=== PATIENT | female | born 1995 | race Caucasian/White ===

== ENCOUNTER 2023-05-14 20:35 | Outpatient (REF) | payer OTHER, SELFPAY ==
[2023-05-21 14:09] LABS: Age Gdln ACOG Testing Note (.); IGP, rfx Aptima HPV ASCU Note (.)
== END 2023-05-14 20:36 | disposition home or self-care (01) ==
LOC: LAB 20:35
PROVIDERS: Visit Provider Obstetrics & Gynecology
DX: Z01.419 Encounter for gynecological examination (general) (routine) without abnormal findings (principal)
CPT/HCPCS: G0145

== ENCOUNTER 2023-05-19 14:25 | Outpatient (OUT) | payer OTHER, SELFPAY ==
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
== END 2023-05-19 14:26 | disposition home or self-care (01) ==
LOC: PST 14:26
PROVIDERS: Visit Provider Obstetrics & Gynecology
DX: Z01.818 Encounter for other preprocedural examination (principal); N94.10 Unspecified dyspareunia; N92.1 Excessive and frequent menstruation with irregular cycle
CPT/HCPCS: G0463

== ENCOUNTER 2023-06-26 08:08 | Day surgery (SDC) | payer OTHER, SELFPAY ==
--- NOTE | 2023-06-23 14:09 | PC.NURSE ---
Attempted to do pre admission review of health history at 1405 no answer.
[2023-06-26] VITALS (8 sets, daily range): BP systolic 95–119; BP diastolic 56–96; PULSE 71–91; RESP 10–18; TEMP 36.1–36.3; O2SAT 96–100; BMI 36.3
[2023-06-26 08:47] LABS: Basophils Absolute Auto 0.1 10^3/uL (0.0-0.1); Basophils Percent Auto 1.2 % (0.2-2.0); Eosinophils Absolute Auto 0.4 10^3/uL (0.0-0.7); Eosinophils Percent Auto 4.1 % (0.9-7.0); Hematocrit 40.6 % (36.0-48.0); Hemoglobin 13.9 g/dL (12.0-16.0); Immature Granulocytes Abs Auto 0.02 10^3/uL (0.00-0.03); Immature Granulocytes Pct Auto 0.2 % (0.0-0.5); Lymphocytes Absolute Auto 3.8 10^3/uL (1.2-3.8); Mean Corpuscular HGB Conc 34.2 g/dL (29.9-35.2); Mean Corpuscular Hemoglobin 30.5 pg (26.7-34.0); Mean Platelet Volume 8.5 fL (9.5-13.5); Monocytes Absolute Auto 0.6 10^3/uL (0.3-0.8); Monocytes Percent Auto 6.7 % (1.7-12.0); Neutrophils Absolute Auto 3.7 10^3/uL (1.4-6.5); Neutrophils Percent Auto 42.8 % (43.0-75.0); Platelet Count 386 10^3/uL (150-450); Red Blood Count 4.56 10^6/uL (4.20-5.40); Red Cell Distribution Width 12.3 % (11.0-15.0); White Blood Count 8.5 10^3/uL (4.0-11.0)
[2023-06-26] MEDS: LACTATED RINGER'S SOLUTION 1,000 ML 50 ML IV (08:51)
[2023-06-26 09:04] LABS: HCG Quantitative <1 mIU/mL
--- NOTE | 2023-06-26 11:34 | P.ON_ITS ---
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 She was also placed in the dorsal lithotomy position. A weighted speculum was placed in the patient?s vagina. The anterior lip of the cervix was identified and grasped with a single tooth tenaculum. The patient?s uterus was then sounded roughly to [? 9] cm. The patient was then gently dilated using Hegar dilators. The hysteroscope was passed through the patient?s cervix into the uterus. Both ostia were identified. Normal appearing endometrium. No gross evidence of polyps, fibroids or malignancy. The hysteroscope was then removed from the patient's uterus.? At that point, gentle curettage was performed until a gritty texture was noted. The endometrial curettings were sent out to pathology.? The single tooth tenaculum was then removed from the patient's anterior lip of the cervix where excellent hemostasis was noted. A sponge stick was placed into the patient's vagina. Attention was turned to the patient's abdomen, where a small umbilical incision was made. The fascia was tented using Amparo clamps and the fascia was entered sharply. Confirmation of intraabdominal placement of the 10 mm port was confirmed under direct visualization using a laparoscope. The patient's abdomen was then insufflated using CO2 gas with approximately 4 liters. A second port was placed left laterally, this was done under direct visualization with a 5 mm port. Survey of the patient's abdomen demonstrated normal liver and gallbladder. Survey of the patient's pelvic anatomy demonstrated normal appearing rt and lt ovary and tubes as well as normal appearing uterus. No endometrial implants could be noted, no evidence of any pelvic disease was seen, normal appearing pelvic cavity. All instruments were removed from the patient's abdomen. The patient's abdomen was deinsufflated of CO2 gas. The patient tolerated the procedure well. Sponge stick was removed from the patient's vagina. The patient's infraumbilical fascia was closed using #0 Vicryl on a GI needle. The patient's skin was closed laterally and infraumbilically using 4-0 Vicryl. The patient tolerated the procedure well. Sponge, lap and needle counts were correct x 2. The patient was taken to Recovery Room in stable condition.Clips from prior surgery noted adhered to bladder, the clips were grasped and gently removed Anesthesia: NAHID Surgeon: Charles Johnson Curing Oven Attendant: Marva Patricia Estimated blood loss (mL): 5 Pathology: other (endometrial currettings) Condition: stable Disposition: PACU
--- NOTE | 2023-06-26 12:46 | PC.NURSE ---
peripad changed for small amount bleeding
--- NOTE | 2023-06-26 12:47 | PC.NURSE ---
Up to bathroom and voids without difficulty pink tinged clear urine
== END 2023-06-26 13:00 | disposition home or self-care (01) ==
PROVIDERS: Visit Provider Obstetrics & Gynecology
PROC: (CPT 840; principal; 2023-06-26 10:00)
DX: N94.6 Dysmenorrhea, unspecified (principal); N92.1 Excessive and frequent menstruation with irregular cycle; R10.2 Pelvic and perineal pain; N93.9 Abnormal uterine and vaginal bleeding, unspecified; F41.8 Other specified anxiety disorders; I67.1 Cerebral aneurysm, nonruptured; Z87.891 Personal history of nicotine dependence; Z98.51 Tubal ligation status; N80.329 Endometriosis of the posterior cul-de-sac, unspecified depth; N94.89 Other specified conditions associated with female genital organs and menstrual cycle
CPT/HCPCS: 49320; 58558; 36415; 84702; 85025; 88305; J2704

== ENCOUNTER 2023-07-21 14:19 | Outpatient (OUT) | payer OTHER, SELFPAY ==
[2023-07-21 15:03] LABS: Basophils Absolute Auto 0.1 10^3/uL (0.0-0.1); Basophils Percent Auto 1.4 % (0.2-2.0); Eosinophils Absolute Auto 0.3 10^3/uL (0.0-0.7); Eosinophils Percent Auto 3.2 % (0.9-7.0); Hemoglobin 13.5 g/dL (12.0-16.0); Immature Granulocytes Abs Auto 0.03 10^3/uL (0.00-0.03); Immature Granulocytes Pct Auto 0.4 % (0.0-0.5); Lymphocytes Absolute Auto 3.3 10^3/uL (1.2-3.8); Lymphocytes Percent Auto 38.1 % (20.5-60.0); Mean Corpuscular HGB Conc 34.6 g/dL (29.9-35.2); Mean Corpuscular Hemoglobin 30.8 pg (26.7-34.0); Mean Platelet Volume 8.6 fL (9.5-13.5); Monocytes Absolute Auto 0.5 10^3/uL (0.3-0.8); Monocytes Percent Auto 5.7 % (1.7-12.0); Neutrophils Absolute Auto 4.4 10^3/uL (1.4-6.5); Neutrophils Percent Auto 51.2 % (43.0-75.0); Platelet Count 419 10^3/uL (150-450); Red Blood Count 4.38 10^6/uL (4.20-5.40); Red Cell Distribution Width 12.9 % (11.0-15.0); White Blood Count 8.5 10^3/uL (4.0-11.0)
[2023-07-21 15:10] LABS: INR 0.95; Partial Thromboplastin Time 27.7 sec (22.3-36.2); Prothrombin Time 10.1 sec (9.0-11.6)
[2023-07-21 15:11] LABS: Anion Gap 12.4; Carbon Dioxide 26.5 mmol/L (21.0-32.0); Chloride 104 mmol/L (98-107); Estimated GFR (African America >60 (>=60); Estimated GFR (Non-African Ame >60 (>=60); Glucose 96 mg/dL (74-106); Potassium 3.9 mmol/L (3.5-5.1); Sodium 139 mmol/L (136-145)
== END 2023-07-21 14:20 | disposition home or self-care (01) ==
LOC: PST 14:20
PROVIDERS: Visit Provider Obstetrics & Gynecology
DX: Z01.812 Encounter for preprocedural laboratory examination (principal); N94.6 Dysmenorrhea, unspecified; R10.2 Pelvic and perineal pain; N92.0 Excessive and frequent menstruation with regular cycle
CPT/HCPCS: 80048; 85025; 85610; 85730; 86850; 86900; 86901

== ENCOUNTER → 2023-07-23 09:59 | Day surgery (SDC) | payer OTHER, SELFPAY ==
[2023-07-21 14:45] VITALS: BP 112/73; PULSE 84; RESP 20; TEMP 36.4; O2SAT 97; BMI 38.2
[2023-07-23 10:47] LABS: HCG Quantitative <1 mIU/mL
== END ==
PROVIDERS: Visit Provider Obstetrics & Gynecology
PROC: (CPT 58570; principal; 2023-07-23 11:30)
DX: N94.10 Unspecified dyspareunia (principal); Z53.8 Procedure and treatment not carried out for other reasons; R10.2 Pelvic and perineal pain; N92.0 Excessive and frequent menstruation with regular cycle; N94.6 Dysmenorrhea, unspecified
CPT/HCPCS: 58570; 36415; 84702

== ENCOUNTER 2023-09-08 07:50 | Outpatient (OUT) | payer OTHER, SELFPAY ==
--- NOTE | 2023-09-08 08:36 | PM.PRESUREVA ---
History of Present Illness History of Present Illness Chief complaint: menorrhagia, pelvic pain, dyspareunia Narrative: Patient presents for preadmission testing. The patient reports heavy painful menstrual periods. She was originally scheduled for hysterectomy in July, however she did not understand NPOinstructions and ate breakfast, so her procedure was canceled. She denies any changes in her health history. Review of Systems ROS Narrative REVIEW OF SYSTEMS: Negative except as stated in HPI, ten or more systems reviewed. Constitutional: No fever , chills, weakness ENT: No sore throat or epistaxis Cardiovascular: No edema, chest pain, palpitations, or activity intolerance Respiratory: No shortness of breath, cough, or wheezing Musculoskeletal: No joint pain or swelling Genitourinary: No dysuria or hematuria Neurological: No numbness, tingling, weakness, or headache Psychiatric: No mood changes PFSH [facility] Medical History (Updated 09/08/23 @ 08:38 by Cait Cardozo NP) Pelvic pain ?R10.2 - Pelvic and perineal pain (ICD-10) Nausea ?R11.0 - Nausea (ICD-10) Brain aneurysm ?I67.1 - Cerebral aneurysm, nonruptured (ICD-10) Vertigo ?R42 - Dizziness and giddiness (ICD-10) Depression ?F32.A - Depression, unspecified (ICD-10) Anxiety ?F41.9 - Anxiety disorder, unspecified (ICD-10) COVID-19 ?U07.1 - COVID-19 (ICD-10) Migraine ?G43.909 - Migraine, unspecified, not intractable, without status migrainosus (ICD-10) Seizures ?R56.9 - Unspecified convulsions (ICD-10) Dyspareunia Menorrhagia ?N92.0 - Excessive and frequent menstruation with regular cycle (ICD-10) Dysmenorrhea ?N94.6 - Dysmenorrhea, unspecified (ICD-10) Surgical History (Updated 05/19/23 @ 14:46 by Cait Cardozo NP) History of appendectomy ?Z90.49 - Acquired absence of other specified parts of digestive tract (ICD-10) History of section ?Z98.891 - History of uterine scar from previous surgery (ICD-10) History of section ?Z98.891 - History of uterine scar from previous surgery (ICD-10) History of section ?Z98.891 - History of uterine scar from previous surgery (ICD-10) History of hernia repair ?Z98.890 - Other specified postprocedural states (ICD-10) ?Z87.19 - Personal history of other diseases of the digestive system (ICD-10) History of bilateral salpingectomy ?Z90.79 - Acquired absence of other genital organ(s) (ICD-10) Family History (Updated 05/19/23 @ 14:46 by Cait Cardozo NP) Other Family history of diabetes mellitus Social History (Updated 05/19/23 @ 14:40 by Cait Cardozo NP) Within the past year, how often did you have a drink containing alcohol: never Score interpretation: A score less than 3 is consistent with normal alcohol consumption. Smoking status: Former smoker Non-prescribed substance use: denies use Highest level of school completed/degree received: high school graduate Meds Home Medications and Allergies Home Medications Medication Instructions Recorded Confirmed Type bupropion HCl 150 mg 24 hr tablet, 150 mg PO QDAY 05/19/23 09/08/23 History extended release citalopram 40 mg tablet 40 mg PO QPM 05/19/23 09/08/23 History meclizine 25 mg tablet 25 mg PO TID PRN dizziness 05/19/23 09/08/23 History Allergies Allergy/AdvReac Type Severity Reaction Status Date / Time nickel Allergy Rash Verified 09/08/23 08:22 Exam Narrative Exam Narrative: Constitutional: Awake, alert, comfortable, well-appearing, Poorly groomed, nontoxic, interactive, vital signs as charted Head: Normocephalic, atraumatic Neck: Supple, normal appearance, normal range of motion, no meningeal signs, no lymphadenopathy Respiratory: No respiratory distress, breath sounds clear Cardiovascular: Regular rate and rhythm, strong and regular heart tones Abdomen: Nontender, normal bowel sounds, soft, no CVA tenderness Musculoskeletal: Normal gait, no swelling or edema Skin: No rashes or induration, no lesions, only visible skin inspected Neuro: No neurological deficits, normal sensation Psychiatric: Oriented ?3, normal affect Assessment and Plan Assessment and Plan (1) Dyspareunia: (2) Menorrhagia: (3) Dysmenorrhea: (4) Pelvic pain: Plan Da Suleman assisted laparoscopic hysterectomy, possible exploratory laparotomy, possible bilateral salpingo-oophorectomy, possible cystoscopy scheduled with Dr. Johnson 09/10/2023.
[2023-09-08 08:42] LABS: Basophils Absolute Auto 0.1 10^3/uL (0.0-0.1); Basophils Percent Auto 0.9 % (0.2-2.0); Eosinophils Absolute Auto 0.3 10^3/uL (0.0-0.7); Eosinophils Percent Auto 2.6 % (0.9-7.0); Hematocrit 39.2 % (36.0-48.0); Hemoglobin 13.5 g/dL (12.0-16.0); Immature Granulocytes Abs Auto 0.02 10^3/uL (0.00-0.03); Immature Granulocytes Pct Auto 0.2 % (0.0-0.5); Lymphocytes Absolute Auto 3.8 10^3/uL (1.2-3.8); Lymphocytes Percent Auto 35.4 % (20.5-60.0); Mean Corpuscular HGB Conc 34.4 g/dL (29.9-35.2); Mean Corpuscular Hemoglobin 30.7 pg (26.7-34.0); Mean Corpuscular Volume 89.1 fL (81.0-99.0); Mean Platelet Volume 8.5 fL (9.5-13.5); Monocytes Absolute Auto 0.7 10^3/uL (0.3-0.8); Neutrophils Absolute Auto 5.7 10^3/uL (1.4-6.5); Neutrophils Percent Auto 53.9 % (43.0-75.0); Platelet Count 354 10^3/uL (150-450); Red Cell Distribution Width 12.5 % (11.0-15.0); White Blood Count 10.6 10^3/uL (4.0-11.0)
[2023-09-08 09:21] LABS: HCG Quantitative <1 mIU/mL
[2023-09-08 09:29] LABS: Partial Thromboplastin Time 29.1 sec (22.3-36.2); Prothrombin Time 10.6 sec (9.0-11.6)
[2023-09-08 09:43] LABS: Alanine Aminotransferase 37 U/L (14-59); Albumin Globulin Ratio 0.9; Albumin Level 3.4 g/dL (3.4-5.0); Alkaline Phosphatase 78 U/L (46-116); Anion Gap 12.1; Aspartate Amino Transferase 19 U/L (15-37); BUN Creatinine Ratio 16.1; Bilirubin Direct 0.1 mg/dL (0.0-0.2); Bilirubin Total 0.4 mg/dL (0.2-1.0); Calcium 8.7 mg/dL (8.5-10.1); Carbon Dioxide 29.8 mmol/L (21.0-32.0); Chloride 103 mmol/L (98-107); Estimated GFR (African America >60 (>=60); Estimated GFR (Non-African Ame >60 (>=60); Globulin 3.7 g/dL; Glucose 83 mg/dL (74-106); Potassium 3.9 mmol/L (3.5-5.1); Sodium 141 mmol/L (136-145); Total Protein 7.1 g/dL (6.4-8.2)
== END 2023-09-08 07:51 | disposition home or self-care (01) ==
LOC: PST 07:51
PROVIDERS: Visit Provider Obstetrics & Gynecology
DX: Z01.812 Encounter for preprocedural laboratory examination (principal); N94.6 Dysmenorrhea, unspecified; R10.2 Pelvic and perineal pain; N92.0 Excessive and frequent menstruation with regular cycle
CPT/HCPCS: 80048; 80076; 84702; 85025; 85610; 85730; 86850; 86900; 86901; G0463

== ENCOUNTER 2023-09-10 11:18 | Day surgery (SDC) | payer OTHER, SELFPAY ==
[2023-09-08 08:31] VITALS: BP 107/78; PULSE 86; RESP 18; TEMP 36.3; O2SAT 96; BMI 38.1
[2023-09-10] VITALS (12 sets, daily range): BP systolic 96–133; BP diastolic 66–92; PULSE 75–99; RESP 12–20; TEMP 36.5–37.2; O2SAT 91–98; BMI 37.3
[2023-09-10 12:02] LABS: HCG Quantitative <1 mIU/mL
[2023-09-10] MEDS: LACTATED RINGER'S SOLUTION 1,000 ML 50 ML IV ×2 (12:07→14:20)
[2023-09-10] MEDS: CEFAZOLIN SODIUM/DEXTROSE,ISO 2 GM/50 ML PIGGYBACK IV ×2 (13:24→19:48)
--- NOTE | 2023-09-10 16:16 | PM.ONB ---
Brief Operative Note Date of procedure: 09/10/23 Pre-op diagnosis: pelvic pain, menorrhagia, dysparuenia, dysmenorrhea Post-op diagnosis: same as pre-op Procedure: NAME OF PROCEDURE: ? Robotic assisted laparoscopic hysterectomy with cystoscopy PROCEDURE:? The patient was taken back to the operating room, where she was prepped and draped in the normal sterile fashion after being placed in the dorsal lithotomy position.? Patient?s anesthesia was found to be adequate.? Surgical timeout was performed using two patient identifiers.? SCDs were on and in place.? Two grams of Ancef were given prior to the surgery.? Sterile Fuentes catheter was inserted.? Standard size VCare was secured to the uterine cervix and the surgeon changed gloves.? Attention then was turned to the patient's abdomen, where a supraumbilical incision was then made.? Two S retractors were used to identify the patient?s fascia.? The fascia was then tented up using Amparo clamps and the patient?s fascia was incised sharply.? Patient?s abdomen was identified and entered bluntly.? The patient had the trocar placed and a pneumoperitoneum was obtained.? Approximately 4 liters of CO2 gas was used.? The camera was then placed through the trocar.? At this time, two robot trocars were placed in the patient?s left and right side, two hand widths from the midline, and this was placed under direct visualization.? Please note absent tubes were seen. The uterine ovarian ligament was identified and transected and ligated using the vessel sealer? The vessel sealer was carried down serially to the broad ligament, to the area of the bladder flap, which was then created anteriorly, and the uterine arteries were skeletonized and sealed using the vessel sealer.? The colpotomy was made using the monopolar cautery on cut, and this was carried circumferentially, posteriorly to anteriorly, until the uterus was amputated.? The specimen was then removed intact through the vagina, without difficulty.? The vagina was then closed using two running V-Loc in a non-lock fashion.? The robot was undocked.? The abdomen was desufflated.? The skin defects were closed using 4-0 Vicryl.? Please note, the fascia was closed using 0 Vicryl.? Sponge, lap and needle counts were correct x2.? Patient was taken to recovery room in stable condition.? The patient was awakened by Anesthesia first.? Patient tolerated procedure well.??Please note left ovarian cystectomy was performed using the vessel sealer Anesthesia: NAHID Surgeon: Charles Johnson Storage Center Manager: Marva Cifuentes Estimated blood loss (mL): 200 Pathology: other (uterus) Condition: stable Disposition: PACU
[2023-09-10] MEDS: LACTATED RINGER'S SOLUTION 1,000 ML 125 ML IV (17:15)
[2023-09-10] MEDS: OXYCODONE HCL/ACETAMINOPHEN 5MG/325MG 2 TAB PO (18:32)
[2023-09-11] MEDS: CEFAZOLIN SODIUM/DEXTROSE,ISO 2 GM/50 ML PIGGYBACK IV (01:24)
[2023-09-11] MEDS: OXYCODONE HCL/ACETAMINOPHEN 5MG/325MG 2 TAB PO ×2 (01:24→08:37)
[2023-09-11] MEDS: LACTATED RINGER'S SOLUTION 1,000 ML 125 ML IV (01:28)
[2023-09-11 04:08] VITALS: O2SAT 91
[2023-09-11] MEDS: ONDANSETRON PF 4 MG/2 ML VIAL IV (05:12)
[2023-09-11 05:22] VITALS: BP 106/67; PULSE 79; RESP 20; TEMP 36.7; O2SAT 95
[2023-09-11 06:07] LABS: Basophils Percent Auto 0.3 % (0.2-2.0); Eosinophils Percent Auto 0.1 % (0.9-7.0); Hematocrit 37.1 % (36.0-48.0); Hemoglobin 12.4 g/dL (12.0-16.0); Immature Granulocytes Abs Auto 0.07 10^3/uL (0.00-0.03); Immature Granulocytes Pct Auto 0.4 % (0.0-0.5); Lymphocytes Absolute Auto 2.1 10^3/uL (1.2-3.8); Mean Corpuscular HGB Conc 33.4 g/dL (29.9-35.2); Mean Corpuscular Hemoglobin 29.9 pg (26.7-34.0); Mean Corpuscular Volume 89.4 fL (81.0-99.0); Monocytes Absolute Auto 1.1 10^3/uL (0.3-0.8); Monocytes Percent Auto 7.2 % (1.7-12.0); Neutrophils Absolute Auto 12.6 10^3/uL (1.4-6.5); Platelet Count 370 10^3/uL (150-450); Red Blood Count 4.15 10^6/uL (4.20-5.40); Red Cell Distribution Width 12.2 % (11.0-15.0); White Blood Count 15.9 10^3/uL (4.0-11.0)
[2023-09-11] MEDS: MAGNESIUM HYDROXIDE 2,400 MG/10 ML ORAL.SUSP 2400 MG PO (08:37)
== END 2023-09-11 10:17 | disposition home or self-care (01) ==
LOC: SURGOUT 16:23 → MS 17:19
PROVIDERS: Visit Provider Obstetrics & Gynecology
PROC: (CPT 840; principal; 2023-09-10 12:30)
DX: N94.6 Dysmenorrhea, unspecified (principal); R10.2 Pelvic and perineal pain; N94.10 Unspecified dyspareunia; N92.0 Excessive and frequent menstruation with regular cycle; N72 Inflammatory disease of cervix uteri; I67.1 Cerebral aneurysm, nonruptured; F32.A Depression, unspecified; F41.9 Anxiety disorder, unspecified; Z86.16 Personal history of COVID-19; Z87.891 Personal history of nicotine dependence
CPT/HCPCS: 58570; 36415; 84702; 85025; 88307; 94667; 96365; 96375; J1170; J2704